=== PATIENT | male | born 1985 | race American Indian/Alaskan Native ===

== ENCOUNTER 2018-02-17 13:46 | Emergency (ER) | payer SELFPAY ==
[2018-02-17] MEDS ORDERED: BOOSTRIX IM ONE (15:21)
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
[2018-02-17 15:40] VITALS: BP 136/85
== END 2018-02-17 15:37 ==
LOC: ED 13:46
DX: S51.812A Laceration without foreign body of left forearm, initial encounter (principal); S10.91XA Abrasion of unspecified part of neck, initial encounter; F17.200 Nicotine dependence, unspecified, uncomplicated; X58.XXXA Exposure to other specified factors, initial encounter; Y93.89 Activity, other specified; Y92.89 Other specified places as the place of occurrence of the external cause; Y99.2 Volunteer activity
CPT/HCPCS: 90471; 90715; 99282